=== PATIENT | female | born 1970 | race Caucasian/White ===

== ENCOUNTER 2020-07-16 19:29 | Inpatient (IN) | payer MEDICAID, OTHER ==
[~2020-07-16] VITALS: Ht 152.4 cm; Wt 57.2 kg
[2020-07-16 20:21] LABS: BASOPHILS % (AUTO) 0.5 % (0.0-2.0); EOSINOPHILS % (AUTO) 0.5 % (1.0-6.0); HEMATOCRIT 37.5 % (36-46); HEMOGLOBIN 11.7 g/dL (12.0-16.0); LYMPHOCYTES # (AUTO) 1.5 K/uL (1.0-4.8); LYMPHOCYTES % (AUTO) 9.8 % (22.0-44.0); MEAN CORPUSCULAR HEMOGLOBIN 20.4 pg (26.0-34.0); MEAN CORPUSCULAR HGB CONC 31.1 G/dL (31.0-37.0); MEAN CORPUSCULAR VOLUME 66 fL (80-100); MONOCYTES # (AUTO) 1.2 K/uL (0.1-1.0); MONOCYTES % (AUTO) 7.6 % (2.0-9.0); NEUTROPHILS # (AUTO) 12.7 K/uL (1.8-7.7); NEUTROPHILS % (AUTO) 81.6 % (40.0-70.0); PLATELET COUNT (AUTO) 371 K/uL (150-450); RED BLOOD CELL COUNT(AUTO) 5.73 MIL/uL (4.00-5.20); RED CELL DISTRIBUTION WIDTH 14.7 % (11.5-14.5)
[2020-07-16 20:31] LABS: ANION GAP 11 mmol/L (8-16); CALCIUM, TOTAL 8.4 mg/dL (8.8-10.5); CARBON DIOXIDE 21 mmol/L (22-29); CHLORIDE 106 mmol/L (98-107); CREATININE 0.69 mg/dL (0.60-1.30); GLOMERULAR FILTR. RATE CALC > 60 mL/min (>60); GLUCOSE,RANDOM 100 mg/dL (70-110); POTASSIUM 3.8 mmol/L (3.5-5.1); SODIUM SERUM 138 mmol/L (136-145); UREA NITROGEN, BLOOD 12 mg/dL (7-18)
[2020-07-16 20:35] LABS: COVID AG,FIA SOURCE NASOPHARYNGEAL
[2020-07-16 20:37] LABS: ACETAMINOPHEN 17 mcg/mL (10-30); ALANINE AMINOTRANSFERASE 22 U/L (12-78); ALBUMIN 3.7 g/dL (3.4-5.0); ALKALINE PHOSPHATASE 78 U/L (46-116); ASPARTATE AMINOTRANSFERASE 15 U/L (15-37); BILIRUBIN,TOTAL 0.4 mg/dL (0.1-1.0)
[2020-07-16 21:16] LABS: SALICYLATE 2.6 mg/dL (2.8-20.0)
[2020-07-16 21:38] LABS: AMPHET/METH SCREEN,URINE NEGATIVE (NEGATIVE); BARBITURATE SCREEN, URINE NEGATIVE (NEGATIVE); BENZODIAZEPINES SCREEN,URINE NEGATIVE (NEGATIVE); CANNABINOID SCREEN,URINE NEGATIVE (NEGATIVE); COCAINE SCREEN,URINE NEGATIVE (NEGATIVE); METHADONE SCREEN, URINE NEGATIVE (NEGATIVE); OPIATE SCREEN,URINE NEGATIVE (NEGATIVE)
[2020-07-16 21:39] LABS: PHENCYCLIDINE SCREEN,URINE NEGATIVE (NEGATIVE)
[2020-07-16] MEDS ORDERED: LORazepam 2 MG TABLET PO PRN (21:45)
[2020-07-16] MEDS ORDERED: HALOPERIDOL 5 MG TABLET PO PRN (21:45)
[2020-07-17 00:45] VITALS: BP 134/65
[2020-07-17] MEDS ORDERED: PETROLATUM,WHITE 28 GM JELLY TP PRN (07:45)
[2020-07-17] MEDS ORDERED: GuaiFENesin/D-METHORPHAN [SUGAR-FREE] 200-20MG/10 ML SYRUP UDCUP PO PRN (07:45)
[2020-07-17] MEDS ORDERED: MAG HYDROX/AL HYDROX/SIMETH ES 30 ML SUSPENSION UDCUP PO PRN (07:45)
[2020-07-17] MEDS ORDERED: DOCUSATE SODIUM 100 MG CAPSULE PO PRN (07:45)
[2020-07-17] MEDS ORDERED: MAGNESIUM HYDROXIDE SUSPENSION 30 ML UDCUP PO PRN (07:45)
[2020-07-17] MEDS ORDERED: NICOTINE 14 MG/24 HOUR PATCH TD PRN (07:45)
[2020-07-17] MEDS ORDERED: ALBUTEROL SULFATE HFA 90 MCG/PUFF 8 GM INHALER IH PRN (07:45)
[2020-07-17] MEDS ORDERED: CloNIDine HCL 0.1 MG TABLET PO PRN (07:45)
[2020-07-17] MEDS ORDERED: ACETAMINOPHEN 325 MG TABLET PO PRN (07:45)
[2020-07-17] MEDS ORDERED: IBUPROFEN 400 MG TABLET PO PRN (07:45)
[2020-07-17] MEDS ORDERED: ONDANSETRON HCL 4 MG TABLET PO PRN (07:45)
[2020-07-17] MEDS ORDERED: LOPERAMIDE HCL 2 MG CAPSULE PO PRN (07:45)
[2020-07-17] MEDS: FLUoxetine HCL 20 MG CAPSULE PO SCH (10:20)
[2020-07-17 16:03] VITALS: BP 113/66
[2020-07-18 08:34] VITALS: BP 111/77
[2020-07-18] MEDS: FLUoxetine HCL 20 MG CAPSULE PO SCH (08:43)
[2020-07-18 16:00] VITALS: BP 102/64
[2020-07-19] MEDS: ZOLPIDEM TARTRATE 10 MG TABLET PO PRN ×2 (00:31→22:16)
[2020-07-19 06:49] LABS: BASOPHILS % (AUTO) 0.5 % (0.0-2.0); EOSINOPHILS % (AUTO) 2.9 % (1.0-6.0); HEMATOCRIT 34.8 % (36-46); HEMOGLOBIN 10.8 g/dL (12.0-16.0); LYMPHOCYTES % (AUTO) 33.2 % (22.0-44.0); MEAN CORPUSCULAR HEMOGLOBIN 20.5 pg (26.0-34.0); MEAN CORPUSCULAR HGB CONC 30.9 G/dL (31.0-37.0); MEAN CORPUSCULAR VOLUME 66 fL (80-100); MONOCYTES # (AUTO) 0.8 K/uL (0.1-1.0); MONOCYTES % (AUTO) 8.5 % (2.0-9.0); NEUTROPHILS # (AUTO) 4.9 K/uL (1.8-7.7); NEUTROPHILS % (AUTO) 54.9 % (40.0-70.0); PLATELET COUNT (AUTO) 338 K/uL (150-450); RED BLOOD CELL COUNT(AUTO) 5.26 MIL/uL (4.00-5.20); RED CELL DISTRIBUTION WIDTH 14.5 % (11.5-14.5)
[2020-07-19 08:00] VITALS: BP 103/69
[2020-07-19] MEDS: FLUoxetine HCL 20 MG CAPSULE PO SCH (11:41)
[2020-07-19] MEDS ORDERED: ESCI-8 PO (17:58)
[2020-07-20] MEDS ORDERED: FLUO-191 PO (04:18)
[2020-07-20] MEDS: FLUoxetine HCL 20 MG CAPSULE PO SCH (09:20)
[2020-07-20 09:21] VITALS: BP 110/53
== END 2020-07-20 14:15 | disposition home or self-care (01) | DRG 751 ==
LOC: EMS 19:29 → 3EI 21:36
PROVIDERS: ADMIT Psychiatry & Neurology Child & Adolescent Psychiatry; ATTEND Psychiatry & Neurology Child & Adolescent Psychiatry
DX: F33.2 Major depressive disorder, recurrent severe without psychotic features (principal); F41.9 Anxiety disorder, unspecified; F17.200 Nicotine dependence, unspecified, uncomplicated; E78.5 Hyperlipidemia, unspecified; D72.829 Elevated white blood cell count, unspecified; D64.9 Anemia, unspecified; T39.1X2A Poisoning by 4-Aminophenol derivatives, intentional self-harm, initial encounter; Y92.89 Other specified places as the place of occurrence of the external cause; Z20.828 Contact with and (suspected) exposure to other viral communicable diseases
CPT/HCPCS: 87426; 93005; 99291; G0480; G0481

== ENCOUNTER 2023-07-25 20:15 | Emergency (ER) | payer MEDICAID ==
[~2023-07-25] VITALS: Ht 149.9 cm; Wt 61.4 kg
[~2023-07-25 20:15] MED LIST: FLUO-177 PO
[2023-07-25] MEDS ORDERED: HYDR-3887 PO (20:41)
[2023-07-25 20:42] VITALS: TEMP 98.1
[2023-07-25 22:45] VITALS: BP 115/71; PULSE 67; RESP 17
[2023-07-25] MEDS ORDERED: METH-812 PO (23:09)
[2023-07-25] MEDS ORDERED: ACETAMINOPHEN 500 MG TABLET PO ONE (23:15)
[2023-07-25] MEDS ORDERED: METHOCARBAMOL 500 MG TABLET PO ONE (23:15)
== END 2023-07-26 00:21 | disposition home or self-care (01) ==
LOC: EMS 20:16
DX: M62.838 Other muscle spasm (principal); Z90.12 Acquired absence of left breast and nipple; Z88.8 Allergy status to other drugs, medicaments and biological substances; V98.8XXA Other specified transport accidents, initial encounter; Y93.89 Activity, other specified; Y92.89 Other specified places as the place of occurrence of the external cause; Y99.8 Other external cause status
CPT/HCPCS: 71045; 72040; 72070; 72100; 99284